=== PATIENT | male | born 1980 | race Caucasian/White ===

== ENCOUNTER 2025-08-11 10:19 | Inpatient (IN) | payer SELFPAY ==
[~2025-08-11] VITALS: Ht 175.3 cm; Wt 77.0 kg
[2025-08-11 10:21] VITALS: O2SAT 99
[2025-08-11] MEDS ORDERED: MORPHINE SULFATE 4 MG/ML INJ (FOR IV/IM USE) IV ONE ×2 (10:30→10:45)
[2025-08-11] MEDS ORDERED: HYDROMORPHONE HCL/PF 2MG/ML INJ IV ONE (11:45)
[2025-08-11 11:46] LABS: BASOPHILS % 0.9 % (0.0-2.0); EOSINOPHILS % 3.5 % (0.0-5.0); HEMATOCRIT. 41.7 % (42.0-52.0); HEMOGLOBIN. 14.0 g/dL (14.0-18.0); LYMPHOCYTES % 23.1 % (20.0-50.0); MEAN PLATELET VOLUME 7.6 fl (7.4-10.4); MONOCYTES % 6.2 % (2.0-8.0); NEUTROPHILS % 66.3 % (40.0-76.0); PLATELET 371 x1000/uL (130-400); RED BLOOD CELL COUNT 4.60 mill/uL (4.7-6.1); RED CELL DISTRIBUTION WIDTH 15.2 % (11.6-14.6)
[2025-08-11 12:06] LABS: CLARITY URINE CLEAR (CLEAR); COLOR URINE YELLOW (YELLOW); GLUCOSE URINE NEGATIVE (NEGATIVE); KETONES URINE NEGATIVE (NEGATIVE); LEUKOCYTE ESTERASE URINE NEGATIVE (NEGATIVE); NITRITE URINE NEGATIVE (NEGATIVE); OCCULT BLOOD URINE TRACE (NEGATIVE); PH URINE 7.0 (4.5-8.0); PROTEIN URINE NEGATIVE (NEGATIVE); SPECIFIC GRAVITY URINE 1.002 (1.005-1.030); UROBILINOGEN URINE 0.2 E.U./dL (0.2-1.0)
[2025-08-11 12:09] LABS: CREATININE 0.9 mg/dL (0.6-1.3); UREA NITROGEN BLOOD 7 mg/dL (9-23)
[2025-08-11 12:11] LABS: ASPARTATE AMINOTRANSFERASE 18 IU/L (<34); BILIRUBIN DIRECT 0.1 mg/dL (<=3.0); BILIRUBIN TOTAL 0.4 mg/dL (0.1-1.0); PROTEIN TOTAL 7.7 g/dL (6.0-8.3)
[2025-08-11] MEDS: HYDROMORPHONE HCL/PF 1MG/ML INJ IV NR (12:20)
[2025-08-11 12:24] LABS: BACTERIA URINE NONE SEEN; RBC URINE NONE SEEN /hpf (0-2); SQUAMOUS EPITHELIAL CELL URINE RARE /lpf (RARE/1+); WBC URINE NONE SEEN /hpf (0-2)
[2025-08-11] MEDS: HYDROMORPHONE HCL/PF 2MG/ML INJ IV ONE (13:16)
[2025-08-11 14:35] VITALS: BP 132/89; PULSE 99; RESP 18; TEMP 37.2; O2SAT 99
[2025-08-11] MEDS ORDERED: MAGNESIUM/ALUMINUM HYDROXIDE/SIMETHICONE 30ML UDC PO PRN (14:45)
[2025-08-11] MEDS ORDERED: ONDANSETRON HCL 4MG/2ML INJ IV PRN (14:45)
[2025-08-11] MEDS ORDERED: ZOLPIDEM TARTRATE 5MG TABLET PO PRN (14:45)
[2025-08-11] MEDS ORDERED: HYDROCODONE/ACETAMINOPHEN 5/325MG TABLET PO PRN (14:45)
[2025-08-11] MEDS ORDERED: CLONIDINE 0.1MG TABLET PO PRN (14:45)
[2025-08-11] MEDS ORDERED: MORPHINE SULFATE 2 MG/ML INJ (NOT FOR IM USE) IV PRN (14:45)
[2025-08-11] MEDS ORDERED: ACETAMINOPHEN 325MG TABLET PO PRN (14:45)
[2025-08-11] MEDS ORDERED: SODIUM CHLORIDE 0.9% 1,000 ML IV SCH (14:45)
[2025-08-11] MEDS ORDERED: NALOXONE HCL 0.4MG/ML VIAL IV PRN (15:00)
[2025-08-11] MEDS ORDERED: KETOROLAC 30MG/ML VIAL IV SCH (15:00)
[2025-08-11] MEDS ORDERED: CEFTRIAXONE 1GM/50ML 50 ML IV SCH (17:00)
[2025-08-11] MEDS ORDERED: ENOXAPARIN 40MG/0.4ML SYR SUBCUT SCH (18:00)
[2025-08-12 08:36] LABS: *AMPHETAMINES SCREEN URINE NEGATIVE (NEGATIVE)
[2025-08-12 08:37] LABS: *BARBITURATES SCREEN URINE NEGATIVE (NEGATIVE); *BENZODIAZEPINES SCREEN URINE NEGATIVE (NEGATIVE)
[2025-08-12 08:38] LABS: *COCAINE SCREEN URINE NEGATIVE (NEGATIVE); CANNABINOID URINE SCREEN NEGATIVE (NEGATIVE); ECSTASY MDMA SCREEN URINE NEGATIVE (NEGATIVE); METHADONE URINE SCREEN NEGATIVE (NEGATIVE); OPIATES URINE SCREEN NEGATIVE (NEGATIVE); PHENCYCLIDINE URINE SCREEN NEGATIVE (NEGATIVE)
[2025-08-12] MEDS ORDERED: PANTOPRAZOLE SODIUM 40 MG/VIAL IV SCH (09:00)
== END 2025-08-11 15:13 | disposition left against medical advice (07) | DRG 465 ==
LOC: ER 10:19 → 7EST 12:43 → EDBEDREQ 12:44 → EDBEDREQTM 12:44 → ENRESERV 14:22
PROVIDERS: ADMIT Internal Medicine; ATTEND Internal Medicine
DX: N13.2 Hydronephrosis with renal and ureteral calculous obstruction (principal); D72.829 Elevated white blood cell count, unspecified; Z53.29 Procedure and treatment not carried out because of patient's decision for other reasons; Z79.899 Other long term (current) drug therapy; Z87.442 Personal history of urinary calculi
CPT/HCPCS: 36415; 76770; 80048; 80076; 80305; 81003; 85025; 96374; 99285; J0696; J1171